=== PATIENT | female | born 1980 | race African-American/Black ===

== ENCOUNTER 2021-10-09 21:53 | Emergency (ER) | payer SELFPAY ==
[~2021-10-09] VITALS: Ht 154.9 cm; Wt 62.0 kg
[2021-10-09] MEDS ORDERED: PREDNISONE 20MG TABLET PO STA (22:22)
[2021-10-09] MEDS ORDERED: IPRATROPIUM BROMIDE (0.02%) 0.5MG/2.5ML NEB HHN STA (22:22)
[2021-10-09] MEDS ORDERED: METHYLPREDNISOLONE SOD SUCC 125 MG/2 ML VIAL IV STA (22:22)
[2021-10-09] MEDS ORDERED: ALBUTEROL (0.083%) 2.5MG/3ML NEB HHN STA (22:22)
[2021-10-10] MEDS ORDERED: P20 MT ×2 (00:45→05:41)
[2021-10-10] MEDS ORDERED: ALBU6.7H9 INH ×2 (00:45→05:41)
[2021-10-10 01:23] VITALS: BP 118/74
== END 2021-10-10 01:24 | disposition home or self-care (01) ==
LOC: ER 21:53
DX: J45.901 Unspecified asthma with (acute) exacerbation (principal); F17.290 Nicotine dependence, other tobacco product, uncomplicated
CPT/HCPCS: 71045; 93005; 94644; 96374; 99285; J2930; J7512; Z7610

== ENCOUNTER 2021-11-04 18:36 | Inpatient (IN) | payer MEDICAID ==
[~2021-11-04] VITALS: Ht 154.9 cm; Wt 69.0 kg
[~2021-11-04 18:36] MED LIST: ALBU6.7H9 INH; P20 MT
[2021-11-04] MEDS ORDERED: IPRATROPIUM BROMIDE (0.02%) 0.5MG/2.5ML NEB HHN STA (19:08)
[2021-11-04] MEDS ORDERED: ALBUTEROL (0.083%) 2.5MG/3ML NEB HHN STA ×2 (19:08→23:46)
[2021-11-04] MEDS ORDERED: PREDNISONE 20MG TABLET PO STA (19:08)
[2021-11-04] MEDS ORDERED: IPRATROPIUM/ALBUTEROL 0.5-3(2.5)MG/3ML NEB ONE (19:49)
[2021-11-04] MEDS ORDERED: ACETAMINOPHEN 325MG TABLET PO ONE (20:00)
[2021-11-04] MEDS ORDERED: MAGNESIUM 2 G PREMIX 50 ML IV ONE (23:00)
[2021-11-04 23:08] LABS: BASOPHILS % 0.3 % (0.0-2.0); HEMOGLOBIN. 15.2 g/dL (12.0-16.0); LYMPHOCYTES % 8.5 % (20.0-50.0); MEAN CORPUSCULAR HEMOGLOBIN 30.8 pg (28.0-32.0); MEAN PLATELET VOLUME 8.2 fl (7.4-10.4); MONOCYTES % 1.6 % (2.0-8.0); NEUTROPHILS % 88.6 % (40.0-76.0); PLATELET 328 x1000/uL (130-400); RED BLOOD CELL COUNT 4.94 mill/uL (4.2-5.4); RED CELL DISTRIBUTION WIDTH 12.9 % (11.6-14.6)
[2021-11-04 23:15] LABS: CHLORIDE 104 mEq/L (98-107)
[2021-11-05 04:00] VITALS: BP 133/82
[2021-11-05 05:18] VITALS: BP 133/82
[2021-11-05] MEDS ORDERED: MULT-1146 MT (06:04)
[2021-11-05] MEDS ORDERED: TOPUD PO (06:04)
[2021-11-05] MEDS ORDERED: ONDANSETRON HCL 4MG/2ML INJ IV PRN (06:15)
[2021-11-05] MEDS ORDERED: ACETAMINOPHEN 325MG TABLET PO PRN (06:15)
[2021-11-05] MEDS ORDERED: IPRATROPIUM/ALBUTEROL 0.5-3(2.5)MG/3ML NEB HHN PRN (06:15)
[2021-11-05] MEDS ORDERED: BUDESONIDE 0.5MG/2ML NEB HHN SCH (07:00)
[2021-11-05 08:00] VITALS: BP 129/76
[2021-11-05] MEDS: IPRATROPIUM/ALBUTEROL 0.5-3(2.5)MG/3ML NEB HHN SCH ×3 (08:16→15:46)
[2021-11-05] MEDS ORDERED: METHYLPREDNISOLONE SOD SUCC 40 MG/ML VIAL IV SCH (10:00)
[2021-11-05 10:24] LABS: BASOPHILS % 0.3 % (0.0-2.0); HEMATOCRIT. 42.6 % (36.0-48.0); HEMOGLOBIN. 14.2 g/dL (12.0-16.0); LYMPHOCYTES % 9.2 % (20.0-50.0); MEAN CORPUSCULAR VOLUME 89.9 fL (81.0-99.0); MEAN PLATELET VOLUME 8.8 fl (7.4-10.4); MONOCYTES % 3.1 % (2.0-8.0); NEUTROPHILS % 87.4 % (40.0-76.0); PLATELET 356 x1000/uL (130-400); RED BLOOD CELL COUNT 4.74 mill/uL (4.2-5.4); RED CELL DISTRIBUTION WIDTH 12.9 % (11.6-14.6)
[2021-11-05 10:29] LABS: CHLORIDE 103 mEq/L (98-107)
[2021-11-05] MEDS ORDERED: KETOROLAC 30MG/ML VIAL IV PRN (10:30)
[2021-11-05] MEDS ORDERED: LEVOFLOXACIN 500MG TABLET PO SCH (11:00)
[2021-11-05 12:00] VITALS: BP 118/76
[2021-11-05] MEDS ORDERED: PNEUMOCOCCAL 23-VAL P-SAC VAC 0.5 ML IM ONE (12:00)
[2021-11-05] MEDS ORDERED: INFLUENZA VACCINE 05/PF 0.5 ML SYRINGE IM ONE (12:00)
[2021-11-05 16:00] VITALS: BP 115/70
[2021-11-05 17:37] VITALS: BP 115/70
[2021-11-05] MEDS ORDERED: ALBU6.7H9 INH (19:30)
[2021-11-05] MEDS ORDERED: FLUT1DIS3 INH (19:30)
== END 2021-11-05 17:55 | disposition home or self-care (01) | DRG 141 ==
LOC: ER 18:36 → MICUSO 23:39 → 8WST 11-05 04:32
PROVIDERS: ADMIT Internal Medicine; ATTEND Internal Medicine
DX: J45.901 Unspecified asthma with (acute) exacerbation (principal); R65.11 Systemic inflammatory response syndrome (SIRS) of non-infectious origin with acute organ dysfunction; J96.00 Acute respiratory failure, unspecified whether with hypoxia or hypercapnia; G43.909 Migraine, unspecified, not intractable, without status migrainosus; Z20.822 Contact with and (suspected) exposure to COVID-19; Z82.5 Family history of asthma and other chronic lower respiratory diseases; Z91.012 Allergy to eggs; Z91.018 Allergy to other foods; Z91.09 Other allergy status, other than to drugs and biological substances; Z79.899 Other long term (current) drug therapy; D72.829 Elevated white blood cell count, unspecified
CPT/HCPCS: 36415; 71045; 80048; 80053; 85025; 87426; 90686; 90732; 93005; 94640; 99285; J1885; J2920; J3475; J7512; J7626

== ENCOUNTER 2021-12-09 18:09 | Emergency (ER) | payer MEDICAID ==
[~2021-12-09] VITALS: Ht 152.4 cm; Wt 67.0 kg
[~2021-12-09 18:09] MED LIST changes: +FLUT1DIS3 INH; +MULT-1146 MT; +TOPUD PO
[2021-12-09] MEDS ORDERED: PREDNISONE 20MG TABLET PO STA (18:42)
[2021-12-09] MEDS ORDERED: ALBUTEROL (0.083%) 2.5MG/3ML NEB HHN STA (18:42)
[2021-12-09] MEDS ORDERED: IPRATROPIUM BROMIDE (0.02%) 0.5MG/2.5ML NEB HHN STA (18:42)
[2021-12-09] MEDS ORDERED: ALBU6.7H9 INH (20:15)
[2021-12-09] MEDS ORDERED: LORA-249 MT (20:15)
[2021-12-09] MEDS ORDERED: P50 MT (20:15)
[2021-12-09 21:39] VITALS: BP 119/74
== END 2021-12-09 20:50 | disposition home or self-care (01) ==
LOC: ER 18:09
DX: J45.901 Unspecified asthma with (acute) exacerbation (principal); Z91.048 Other nonmedicinal substance allergy status
CPT/HCPCS: 94640; 99283; J7512; Z7610

== ENCOUNTER 2022-02-01 11:04 | Emergency (ER) | payer MEDICAID ==
[~2022-02-01] VITALS: Ht 154.9 cm; Wt 64.0 kg
[~2022-02-01 11:04] MED LIST changes: +LORA-249 MT; +P50 MT
[2022-02-01] MEDS ORDERED: ALBUTEROL (0.083%) 2.5MG/3ML NEB HHN STA (11:18)
[2022-02-01] MEDS ORDERED: ACETAMINOPHEN 325MG TABLET PO ONE (11:30)
[2022-02-01] MEDS ORDERED: PREDNISONE 20MG TABLET PO ONE (11:30)
[2022-02-01] MEDS ORDERED: ALBU6.7H9 INH (12:44)
[2022-02-01] MEDS ORDERED: P20 MT (12:45)
[2022-02-01 13:40] VITALS: BP 122/85
== END 2022-02-01 13:55 | disposition home or self-care (01) ==
LOC: ER 11:04
DX: J45.901 Unspecified asthma with (acute) exacerbation (principal); F12.10 Cannabis abuse, uncomplicated; I10 Essential (primary) hypertension; Z91.048 Other nonmedicinal substance allergy status; Z79.899 Other long term (current) drug therapy; Z13.9 Encounter for screening, unspecified; Z20.822 Contact with and (suspected) exposure to COVID-19
CPT/HCPCS: 71045; 87426; 94640; 99284; C9803; J7512; Z7610

== ENCOUNTER 2022-02-26 14:11 | Emergency (ER) | payer MEDICAID ==
[~2022-02-26] VITALS: Ht 167.6 cm; Wt 89.0 kg
[2022-02-26] MEDS ORDERED: METHYLPREDNISOLONE SOD SUCC 125 MG/2 ML VIAL IV STA (14:29)
[2022-02-26] MEDS ORDERED: ALBUTEROL (0.083%) 2.5MG/3ML NEB HHN STA (14:29)
[2022-02-26] MEDS ORDERED: IPRATROPIUM BROMIDE (0.02%) 0.5MG/2.5ML NEB HHN STA (14:29)
[2022-02-26 15:08] LABS: BASOPHILS % 1.3 % (0.0-2.0); EOSINOPHILS % 11.3 % (0.0-5.0); HEMOGLOBIN. 15.7 g/dL (12.0-16.0); LYMPHOCYTES % 24.4 % (20.0-50.0); MEAN CORPUSCULAR HEMOGLOBIN 30.6 pg (28.0-32.0); MEAN CORPUSCULAR VOLUME 89.5 fL (81.0-99.0); MEAN PLATELET VOLUME 8.9 fl (7.4-10.4); MONOCYTES % 6.8 % (2.0-8.0); NEUTROPHILS % 56.2 % (40.0-76.0); PLATELET 347 x1000/uL (130-400); RED BLOOD CELL COUNT 5.14 mill/uL (4.2-5.4); RED CELL DISTRIBUTION WIDTH 12.7 % (11.6-14.6)
[2022-02-26 15:12] LABS: CHLORIDE 107 mEq/L (98-107)
[2022-02-26 15:21] LABS: HCG SCREEN NEGATIVE
[2022-02-26] MEDS ORDERED: P20 MT (16:59)
[2022-02-26] MEDS ORDERED: ALBU6.7H9 INH (16:59)
[2022-02-26 17:00] VITALS: BP 131/76
== END 2022-02-26 17:56 | disposition home or self-care (01) ==
LOC: ER 14:21
DX: J45.901 Unspecified asthma with (acute) exacerbation (principal); Z91.048 Other nonmedicinal substance allergy status
CPT/HCPCS: 36415; 71045; 80053; 84703; 85025; 93005; 94644; 96374; 99285; J2930; Z7610

== ENCOUNTER 2022-05-28 13:52 | Emergency (ER) | payer MEDICAID ==
[~2022-05-28] VITALS: Ht 154.9 cm; Wt 76.0 kg
[2022-05-28] MEDS ORDERED: IPRATROPIUM BROMIDE (0.02%) 0.5MG/2.5ML NEB HHN STA (15:31)
[2022-05-28] MEDS ORDERED: PREDNISONE 20MG TABLET PO STA (15:31)
[2022-05-28] MEDS ORDERED: ALBUTEROL (0.083%) 2.5MG/3ML NEB HHN STA (15:31)
[2022-05-28] MEDS ORDERED: P20 MT (15:37)
[2022-05-28] MEDS ORDERED: ALBU6.7H9 INH (15:37)
[2022-05-28] MEDS ORDERED: IBUP-2028 MT (15:37)
[2022-05-28] MEDS ORDERED: IBUPROFEN 400MG TABLET PO ONE (15:45)
[2022-05-28 17:37] VITALS: BP 122/80
== END 2022-05-28 17:50 | disposition home or self-care (01) ==
LOC: ER 14:25
DX: J45.901 Unspecified asthma with (acute) exacerbation (principal); M21.612 Bunion of left foot; Z91.048 Other nonmedicinal substance allergy status
CPT/HCPCS: 81025; 99285; J7512; Z7610